=== PATIENT | female | born 1975 | race Caucasian/White ===

== ENCOUNTER 2016-10-07 06:17 | Emergency (ER) | payer OTHER ==
[~2016-10-07] VITALS: Ht 175.3 cm; Wt 69.8 kg
[~2016-10-07 06:17] MED LIST: FLEXERIL10 MG PO; INDOCIN25 MG PO; TYLENOL WITH C1 EACH PO; ULTRACET1 TABLET PO; VALIUM5 MG PO; VICODIN,LORT1 TABLET PO; ZOFRAN ODT4 MG PO
[2016-10-07 07:10] VITALS: BP 107/76
== END 2016-10-07 07:10 | disposition home or self-care (01) ==
LOC: EME 06:17
DX: H57.12 Ocular pain, left eye (principal); Z97.3 Presence of spectacles and contact lenses; Z88.5 Allergy status to narcotic agent; Z88.6 Allergy status to analgesic agent
CPT/HCPCS: 99281; 99283

== ENCOUNTER 2017-09-09 14:32 | Emergency (ER) | payer OTHER ==
[~2017-09-09] VITALS: Ht 177.8 cm; Wt 73.4 kg
[2017-09-09 14:57] LABS: HEMATOCRIT 38.4 % (36.0-46.0); HEMOGLOBIN 13.2 G/DL (11.9-15.5); MCH 31.6 PG (29.0-34.0); MCHC 34.4 G/DL (30.0-36.0); MCV 91.9 FL (83-99); PLATELET COUNT 183 K/uL (156-360); RBC DIS.WIDTH-CV 13.1 % (11.8-14.6); RBC DIS.WIDTH-SD 44.2 % (39-53); RED BLOOD COUNT 4.18 M/uL (3.80-5.20); WHITE BLOOD COUNT 7.5 K/uL (4.1-10.2)
[2017-09-09 15:06] LABS: CHLORIDE 106 mEq/L (99-109); SODIUM 141 mEq/L (136-147)
[2017-09-09 15:07] LABS: GLUCOSE 84 mg/dL (70-99)
[2017-09-09 15:07] LABS: APPEARANCE CLEAR ((CLEAR)); BILIRUBIN NEGATIVE; BLOOD NEGATIVE; COLOR YELLOW ((YELLOW)); GLUCOSE (STRIP) NEGATIVE; KETONES NEGATIVE; LEUKOCYTES MODERATE; NITRITE NEGATIVE; PROTEIN (STRIP) NEGATIVE; SPECIFIC GRAVITY 1.016 (1.000-1.030); UROBILINOGEN 0.2 MG/DL (0.2-1.0)
[2017-09-09 15:11] LABS: CREATININE 0.8 mg/dL (0.6-1.3); GFR ESTIMATE (CALCULATED) > 59 mL/min/
[2017-09-09 15:12] LABS: UREA NITROGEN (BUN) 13 mg/dL (9-23)
[2017-09-09 15:18] LABS: BACTERIA NONE SEEN /HPF; EPITHELIAL CELLS 1+ /HPF; MUCUS TRACE /LPF; RED BLOOD CELLS 0-5 /HPF (0-5); UCUL ADDED? YES
[2017-09-09 15:19] LABS: QUANTITATIVE HCG < 4.0 MIU/ML
[2017-09-09] MEDS ORDERED: CIPRO500 MG PO (16:21)
[2017-09-09 16:49] VITALS: BP 135/61
== END 2017-09-09 16:56 | disposition home or self-care (01) ==
LOC: RME 14:32 → EME 14:32 → RME 16:56
PROVIDERS: Physician Assistant
DX: N10 Acute pyelonephritis (principal); F32.9 Major depressive disorder, single episode, unspecified; Z87.440 Personal history of urinary (tract) infections; Z88.5 Allergy status to narcotic agent; Z88.6 Allergy status to analgesic agent
CPT/HCPCS: 74176; 80048; 81003; 84702; 85027; 87086; 99281; 99284; J1885